=== PATIENT | female | born 1990 | race African-American/Black ===

== ENCOUNTER 2019-03-25 18:35 | Emergency (ER) | payer SELFPAY ==
[~2019-03-25] VITALS: Ht 162.6 cm; Wt 91.2 kg
--- OUTSIDE RECORDS SUMMARY | 2019-03-25 18:37 | XMS REPORT ---
Author Author [facility] Address Unknown Phone Unavailable Care Team Providers Care Panel Wirer Name Role Phone Unavailable Unavailable Problems This patient has no known problems. Allergies, Adverse Reactions, Alerts This patient has no known allergies or adverse reactions. Medications This patient has no known medications.
== END 2019-03-25 18:45 | disposition left against medical advice (07) ==
LOC: ER 18:35
DX: M79.671 Pain in right foot (principal)